=== PATIENT | male | born 1960 | race Caucasian/White ===

== ENCOUNTER → 2016-10-11 | Outpatient (CLI) | payer OTHER ==
[~2016-10-11] MED LIST: ATENOLOL50 M1 PO; CRESTOR5 MG PO; FENOFIBRATE MI200 MG PO; FISH OIL 1,2001 EACH PO; NORVASC5 MG PO; PAXIL30 M2 PO; VICODIN 5-3001 EACH PO
--- NOTE | ~2016-10-11 | ST ---
[place], [place] EXERCISE STRESS TEST REPORT NAME: SMITHA NAPIER UNIT #: [id number] ROOM: DOCTOR: DANIELLE FLOREZ MD BIRTHDATE: [birth year] DOS: 10/11/2016 EXERCISE NUCLEAR PERFUSION STUDY INDICATIONS: Substernal chest pain. PROCEDURE: The patient walked for 6 minutes on a full Cecil protocol and then for an additional minute on the second stage of the protocol. His resting heart rate of 75 ramón to 142, which represented 87% of his maximum predicted heart rate. The resting blood pressure of 152/80 ramón to 198/60. He stopped for fatigue and did not reproduce his presenting symptoms of chest tightness, diaphoresis or nausea. The resting electrocardiogram showed sinus rhythm and was a normal tracing. He did not have any diagnostic electrocardiographic changes with exercise. One minute prior to completion of the exercise protocol, he was given radionuclide intravenously. IMPRESSION: 1. Adequate exercise capacity without chest pain or diagnostic electrocardiographic changes. 2. Manzanares treadmill score of 7 consistent with a low risk of cardiac disease. 3. Radionuclide injected. Please see the separate imaging report for further details of the patient's stress test results. DANIELLE FLOREZ MD CM:STRESS:EXERCISE STRESS TEST REPORT 1000 04 DANIELLE FLOREZ MD
[2016-10-11 07:04] LABS: BASO % 0.5 % (0.0-1.0); EOS # 0.3 10*3/uL (0.0-0.4); EOS % 4.2 % (1.0-4.0); HEMATOCRIT 47.6 % (42.0-52.0); HEMOGLOBIN 15.4 g/dl (14.0-18.0); IG # 0.1 10*3/uL (0.0-0.1); LYMPH # 1.4 10*3/uL (1.3-4.4); LYMPH % 22.2 % (27.0-41.0); MEAN CELL VOLUME 95.8 fl (80.0-94.0); MEAN CORPUSCULAR HGB CONC 32.4 g/dl (33.0-37.0); MEAN PLATELET VOLUME 9.8 fl (9.6-12.3); MONO # 0.6 10*3/uL (0.1-1.0); MONO % 9.1 % (3.0-9.0); NEUT % 63.2 % (47.0-73.0); PLATELET COUNT AUTOMATED 209 10*3/uL (130-400); RED BLOOD COUNT 4.97 10*6/uL (4.50-5.90); RED CELL DISTRI WIDTH 13.1 % (0-14.5); WHITE BLOOD COUNT 6.4 10*3/uL (4.8-10.8)
[2016-10-11 07:38] LABS: ALKALINE PHOSPHATASE 56 U/L (45-117); BILIRUBIN, TOTAL 0.7 mg/dl (0.2-1.0); BUN 11 mg/dl (7-24); CARBON DIOXIDE 27 mmol/L (21-32); CHLORIDE 108 mmol/L (98-107); CHOLESTEROL 146 mg/dL (<200); EST GLOM FILT AFRICAN AMERICAN > 60 ml/min; GLUCOSE 90 mg/dL (65-99); HDL CHOLESTEROL 58 mg/dl (40-60); LDL CHOLESTEROL 51 mg/dL (9-159); POTASSIUM 4.1 mmol/L (3.5-5.1); SGOT/AST 44 IU/L (3-35); SGPT/ALT 61 U/L (12-78); SODIUM 144 mmol/L (136-145); TOTAL PROTEIN 7.5 gm/dL (6.4-8.2); TRIGLYCERIDES 187 mg/dl (<150); VLDL CHOLESTEROL 37 mg/dL (6-40)
[2016-10-12 08:11] LABS: PROSTATE SPECIFIC AG FREE 0.07 ng/mL; PSA % FREE 17.5 % (.)
== END | disposition home or self-care (01) ==
LOC: LAB 01:52 → CARD 01:52
PROVIDERS: Internal Medicine
DX: R07.2 Precordial pain (principal); E78.2 Mixed hyperlipidemia; I10 Essential (primary) hypertension; E55.9 Vitamin D deficiency, unspecified; R35.1 Nocturia; I20.0 Unstable angina

== ENCOUNTER 2016-11-20 12:36 | Emergency (ER) | payer OTHER ==
[~2016-11-20] VITALS: Ht 187.9 cm; Wt 122.5 kg
[2016-11-20] MEDS ORDERED: AMLODIPINE BESY1 TAB PO (12:43)
[2016-11-20] MEDS ORDERED: VITAMIN D400 UNI1 PO (12:45)
[2016-11-20 13:11] LABS: BASO % 0.3 % (0.0-1.0); EOS # 0.3 10*3/uL (0.0-0.4); EOS % 3.9 % (1.0-4.0); HEMATOCRIT 44.2 % (42.0-52.0); HEMOGLOBIN 14.3 g/dl (14.0-18.0); LYMPH # 1.6 10*3/uL (1.3-4.4); LYMPH % 22.6 % (27.0-41.0); MEAN CELL VOLUME 96.3 fl (80.0-94.0); MEAN CORPUSCULAR HGB 31.2 pg (27.0-31.0); MEAN CORPUSCULAR HGB CONC 32.4 g/dl (33.0-37.0); MEAN PLATELET VOLUME 9.2 fl (9.6-12.3); MONO # 0.7 10*3/uL (0.1-1.0); MONO % 9.1 % (3.0-9.0); NEUT # 4.6 10*3/uL (2.3-7.9); NEUT % 63.5 % (47.0-73.0); PLATELET COUNT AUTOMATED 189 10*3/uL (130-400); RED BLOOD COUNT 4.59 10*6/uL (4.50-5.90); RED CELL DISTRI WIDTH 12.8 % (0-14.5); WHITE BLOOD COUNT 7.2 10*3/uL (4.8-10.8)
[2016-11-20 13:22] LABS: INTERNATIONAL NORM RATIO 0.9 (2.0-3.5); PROTHROMBIN TIME 9.7 SECONDS (9.0-12.4)
[2016-11-20 13:25] LABS: ALBUMIN 4.1 gm/dl (3.1-4.5); ALKALINE PHOSPHATASE 64 U/L (45-117); BILIRUBIN, TOTAL 0.6 mg/dl (0.2-1.0); BUN 12 mg/dl (7-24); C-REACTIVE PROTEIN 0.46 MG/DL (0-0.3); CARBON DIOXIDE 28 mmol/L (21-32); CHLORIDE 108 mmol/L (98-107); EST GLOM FILT AFRICAN AMERICAN > 60 ml/min; GLUCOSE 101 mg/dL (65-99); SGOT/AST 33 IU/L (3-35); SGPT/ALT 41 U/L (12-78); SODIUM 144 mmol/L (136-145); TOTAL PROTEIN 7.5 gm/dL (6.4-8.2)
[2016-11-20 14:12] LABS: MAGNESIUM 2.1 mg/dL (1.5-2.1)
[2016-11-20] MEDS ORDERED: BACTRIM DS 8001 TAB PO (14:25)
== END 2016-11-20 14:41 | disposition home or self-care (01) ==
LOC: ED 12:36
PROVIDERS: Emergency Medicine
DX: L03.116 Cellulitis of left lower limb (principal); Z79.899 Other long term (current) drug therapy

== ENCOUNTER → 2017-03-29 | Outpatient (CLI) | payer BC ==
[~2017-03-29] MED LIST changes: +AMLODIPINE BESY1 TAB PO; +BACTRIM DS 8001 TAB PO; +VITAMIN D400 UNI1 PO
[2017-03-29 08:08] LABS: BASO % 0.3 % (0.0-1.0); EOS # 0.3 10*3/uL (0.0-0.4); EOS % 4.8 % (1.0-4.0); HEMATOCRIT 46.7 % (42.0-52.0); HEMOGLOBIN 15.7 g/dl (14.0-18.0); LYMPH # 1.5 10*3/uL (1.3-4.4); LYMPH % 22.4 % (27.0-41.0); MEAN CELL VOLUME 95.3 fl (80.0-94.0); MEAN CORPUSCULAR HGB CONC 33.6 g/dl (33.0-37.0); MEAN PLATELET VOLUME 9.6 fl (9.6-12.3); MONO # 0.6 10*3/uL (0.1-1.0); MONO % 8.9 % (3.0-9.0); NEUT # 4.2 10*3/uL (2.3-7.9); NEUT % 62.8 % (47.0-73.0); PLATELET COUNT AUTOMATED 193 10*3/uL (130-400); RED CELL DISTRI WIDTH 12.7 % (0-14.5); WHITE BLOOD COUNT 6.7 10*3/uL (4.8-10.8)
[2017-03-29 08:36] LABS: ALBUMIN 4.1 gm/dl (3.1-4.5); ALKALINE PHOSPHATASE 63 U/L (45-117); BUN 12 mg/dl (7-24); CHLORIDE 105 mmol/L (98-107); CHOLESTEROL 172 mg/dL (<200); HDL CHOLESTEROL 49 mg/dl (40-60); LDL CHOLESTEROL 51 mg/dL (9-159); POTASSIUM 4.4 mmol/L (3.5-5.1); SGOT/AST 46 IU/L (3-35); SGPT/ALT 63 U/L (12-78); SODIUM 141 mmol/L (136-145); TOTAL PROTEIN 7.9 gm/dL (6.4-8.2); TRIGLYCERIDES 362 mg/dl (<150); VLDL CHOLESTEROL 72 mg/dL (6-40)
== END | disposition home or self-care (01) ==
LOC: LAB 07:31 → US 07:31
PROVIDERS: Internal Medicine
DX: I87.332 Chronic venous hypertension (idiopathic) with ulcer and inflammation of left lower extremity (principal); E55.9 Vitamin D deficiency, unspecified; E78.2 Mixed hyperlipidemia; I87.2 Venous insufficiency (chronic) (peripheral); R60.0 Localized edema; L97.221 Non-pressure chronic ulcer of left calf limited to breakdown of skin

== ENCOUNTER → 2017-04-17 | Outpatient (CLI) | payer BC | END | disposition home or self-care (01) | LOC: WOUNDCARE 01:09 | DX: I87.332 Chronic venous hypertension (idiopathic) with ulcer and inflammation of left lower extremity (principal); L97.221 Non-pressure chronic ulcer of left calf limited to breakdown of skin; Z85.828 Personal history of other malignant neoplasm of skin; Z87.891 Personal history of nicotine dependence; Z72.89 Other problems related to lifestyle ==

== ENCOUNTER → 2017-06-09 | Outpatient (CLI) | payer BC, OTHER ==
[2017-06-09 08:25] LABS: BUN 11 mg/dl (7-24); CHLORIDE 103 mmol/L (98-107); CREATININE 1.15 mg/dL (0.70-1.30); SODIUM 140 mmol/L (136-145)
== END | disposition home or self-care (01) ==
LOC: LAB 07:34
PROVIDERS: Internal Medicine
DX: M51.36 Other intervertebral disc degeneration, lumbar region (principal); M19.012 Primary osteoarthritis, left shoulder; I10 Essential (primary) hypertension

== ENCOUNTER 2018-01-07 10:20 | Inpatient (IN) | payer BC, OTHER ==
[~2018-01-07] VITALS: Ht 188 cm; Wt 119.0 kg
--- NOTE | ~2018-01-07 | CON ---
[place], [place] REPORT OF CONSULTATION NAME: SMITHA NAPIER UNIT #: [id number] ROOM: 405 DOCTOR: AMINAH UGALDE DPM BIRTHDATE: [birth year] DOS: SUBJECTIVE: The patient is a 57-year-old male with chief complaint of rash and recurrent lesions on his left leg that he has had for approximately 12 months. The patient has had treatment by Dr. Edge at [facility]. The patient states he has not had a biopsy of the lesions performed. Previously, he has tried topical treatment only. PAST MEDICAL HISTORY: Hyperlipidemia, hypertension. PAST SURGICAL HISTORY: Right knee. SOCIAL HISTORY: Alcohol dependence, tobacco use almost 2 packs of cigarettes per day. FAMILY HISTORY: Father at age 60+ of stroke. Mother at age 60+ of CA. ALLERGIES: TAPE, LATEX. PHYSICAL EXAMINATION: EXTREMITIES: Lower extremity examination: Pedal pulses are palpable. There is an open wound is full thickness approximately 1 cm in length x 0.6 cm in width with no signs of infection to the anterior lateral lower left leg. No clinical signs of infection or fluctuance, no cellulitis. There are multiple lesions on the left leg, circular in nature consistent with possible dermatological idiopathic conditions that a biopsy may be needed to confirm diagnosis. ASSESSMENT: Ulceration, left lower leg; allergic dermatitis. PLAN: Evaluation and management. Ordered Bactroban and dressing to the wound of the left leg. Discussed with the patient upon closure of the wound, recommend a strong steroid cream and strongly recommend a punch biopsy would be performed for definitive diagnosis and proper treatment of the lesions of the left leg. Discussed this in detail with the patient and his and we will follow the patient accordingly. AMINAH UGALDE DPM CM:CONSTR:REPORT OF CONSULTATION 1211 01/10/18 0001 interface
[2018-01-07 11:06] LABS: BASO % 0.2 % (0.0-1.0); EOS # 0.2 10*3/uL (0.0-0.4); EOS % 1.8 % (1.0-4.0); HEMATOCRIT 54.3 % (42.0-52.0); HEMOGLOBIN 17.4 g/dl (14.0-18.0); LYMPH # 1.4 10*3/uL (1.3-4.4); LYMPH % 16.2 % (27.0-41.0); MEAN CORPUSCULAR HGB 31.4 pg (27.0-31.0); MEAN PLATELET VOLUME 9.6 fl (9.6-12.3); MONO # 0.7 10*3/uL (0.1-1.0); NEUT # 6.4 10*3/uL (2.3-7.9); NEUT % 73.1 % (47.0-73.0); PLATELET COUNT AUTOMATED 177 10*3/uL (130-400); RED BLOOD COUNT 5.54 10*6/uL (4.50-5.90); RED CELL DISTRI WIDTH 13.8 % (0-14.5); WHITE BLOOD COUNT 8.8 10*3/uL (4.8-10.8)
[2018-01-07 11:28] LABS: ALBUMIN 3.7 gm/dl (3.1-4.5); BUN 7 mg/dl (7-24); CHLORIDE 105 mmol/L (98-107); CHOLESTEROL 139 mg/dL (<200); CREATININE 1.41 mg/dL (0.70-1.30); HDL CHOLESTEROL 53 mg/dl (40-60); LDL CHOLESTEROL 53 mg/dL (9-159); POTASSIUM 4.2 mmol/L (3.5-5.1); SGOT/AST 68 IU/L (3-35); SGPT/ALT 68 U/L (12-78); SODIUM 140 mmol/L (136-145); TOTAL PROTEIN 7.5 gm/dL (6.4-8.2); TRIGLYCERIDES 163 mg/dl (<150); VLDL CHOLESTEROL 33 mg/dL (6-40)
[2018-01-07 11:37] LABS: ALKALINE PHOSPHATASE 77 U/L (45-117); THYROID STIM HORMONE (HS) 0.995 uIU/ml (0.358-4.75)
[2018-01-07 12:00] VITALS: BP 130/85
[2018-01-07] MEDS ORDERED: HYDROCODON-ACE1 EACH PO (12:23)
[2018-01-07] MEDS ORDERED: HYDROCHLOROTHIA25 M1 PO (12:26)
[2018-01-07 13:00] VITALS: BP 120/72
[2018-01-07 13:20] LABS: BILIRUBIN NEGATIVE (NEGATIVE); BLOOD NEGATIVE (NEGATIVE); CLARITY CLEAR (CLEAR); COLOR YELLOW (YELLOW); GLUCOSE NEGATIVE (NEGATIVE); KETONE NEGATIVE (NEGATIVE); LEUKO ESTERASE NEGATIVE (NEGATIVE); NITRITE NEGATIVE (NEGATIVE)
[2018-01-07 13:30] LABS: URINE AMPHETAMINES < 1000 (1000ng/ml); URINE BARBITURATES < 200 (200ng/ml); URINE BENZODIAZEPINES < 200 (200ng/ml); URINE CANNABINOIDS (THC) < 50 (50ng/ml); URINE COCAINE < 300 (300ng/ml); URINE METHADONE < 300 (300ng/ml); URINE OPIATES > 300 (300ng/ml)
[2018-01-07 13:31] LABS: BACTERIA 1+; HYALINE CAST 21-30; URINE PHENCYCLIDINE < 25 (25ng/ml)
[2018-01-07 16:00] VITALS: BP 125/68
[2018-01-07 20:00] VITALS: BP 105/63
[2018-01-08] VITALS (7 sets, daily range): BP systolic 114–136; BP diastolic 69–90
[2018-01-09] VITALS: BP 113/58
[2018-01-09 07:57] VITALS: BP 110/60
[2018-01-09 12:00] VITALS: BP 125/73
[2018-01-09 16:00] VITALS: BP 106/61
[2018-01-09 20:00] VITALS: BP 125/70
[2018-01-10] VITALS: BP 107/74
[2018-01-10 06:51] LABS: BASO % 0.2 % (0.0-1.0); EOS # 0.2 10*3/uL (0.0-0.4); EOS % 2.8 % (1.0-4.0); HEMATOCRIT 52.8 % (42.0-52.0); HEMOGLOBIN 16.4 g/dl (14.0-18.0); LYMPH # 1.4 10*3/uL (1.3-4.4); LYMPH % 21.1 % (27.0-41.0); MEAN CELL VOLUME 101.3 fl (80.0-94.0); MEAN CORPUSCULAR HGB 31.5 pg (27.0-31.0); MEAN CORPUSCULAR HGB CONC 31.1 g/dl (33.0-37.0); MEAN PLATELET VOLUME 9.5 fl (9.6-12.3); MONO # 0.6 10*3/uL (0.1-1.0); MONO % 9.3 % (3.0-9.0); NEUT # 4.3 10*3/uL (2.3-7.9); NEUT % 66.1 % (47.0-73.0); PLATELET COUNT AUTOMATED 123 10*3/uL (130-400); RED BLOOD COUNT 5.21 10*6/uL (4.50-5.90); RED CELL DISTRI WIDTH 13.8 % (0-14.5); WHITE BLOOD COUNT 6.5 10*3/uL (4.8-10.8)
[2018-01-10 07:09] LABS: CREATININE 0.95 mg/dL (0.70-1.30)
[2018-01-10 08:00] VITALS: BP 127/71
[2018-01-10] MEDS ORDERED: NATURE'S BLEND100 M2 PO (11:00)
[2018-01-10] MEDS ORDERED: NATURE'S BLEND F1 MG PO (11:00)
== END 2018-01-10 11:20 | disposition home or self-care (01) | DRG 683 ==
LOC: LAB 10:20 → 4E 10:24
PROVIDERS: Internal Medicine; Student in an Organized Health Care Education/Training Program
DX: N17.0 Acute kidney failure with tubular necrosis (principal); L97.929 Non-pressure chronic ulcer of unspecified part of left lower leg with unspecified severity; R82.71 Bacteriuria; R74.0 Nonspecific elevation of levels of transaminase and lactic acid dehydrogenase [LDH]; I10 Essential (primary) hypertension; E78.5 Hyperlipidemia, unspecified; F41.9 Anxiety disorder, unspecified; R73.9 Hyperglycemia, unspecified; L23.9 Allergic contact dermatitis, unspecified cause; E86.0 Dehydration; F10.10 Alcohol abuse, uncomplicated; Z82.3 Family history of stroke; Z80.8 Family history of malignant neoplasm of other organs or systems; Z83.3 Family history of diabetes mellitus; Z91.040 Latex allergy status; Z91.048 Other nonmedicinal substance allergy status; Z79.899 Other long term (current) drug therapy; Z71.6 Tobacco abuse counseling; Z72.0 Tobacco use